=== PATIENT | female | born 1995 | race American Indian/Alaskan Native ===

== ENCOUNTER 2018-03-13 14:29 | Emergency (ER) | payer MEDICAID ==
--- NOTE | 2018-03-13 14:47 | Emergency Department Report ---
ED General Adult HPI - General Chief complaint: Upper Respiratory Infection Stated complaint: FEELING ILL FEVER AND SHORT OF BREATH Time Seen by Provider: 03/13/18 14:45 Source: patient Mode of arrival: Ambulatory Limitations: No Limitations - History of Present Illness Initial comments: This is a 22-year-old female here complaining of cold symptoms and shortness of breath for one week. She reports cough is productive and green, runny nose and congestion. She states that she has asthma but it slightly like her asthma symptoms. Patient says she just moved to [place]. She says she takes inhaler for asthma. Denies any chest pain. Denies any wheezing. She says she usually wheezes and cough with her asthma attacks. Patient says she has chills but denies any fever. Last menstrual period was 02/17/2018. Patient also requesting to have STD testing because she said she might of been exposed to STD and report vaginal discharge with negative odor. She denies any pain. She took [id number] cough and cold medication did not help. Denies any nausea or vomiting. Denies any recent weight loss. MD Complaint: cold symptoms and possible STD Onset/Timin -: week(s) Severity scale (0 -10): 0 Associated Symptoms: cough, fever/chills, shortness of breath. denies: confusion, chest pain, diaphoresis, headaches, loss of appetite, malaise, nausea /vomiting, rash, seizure, syncope, weakness Treatments Prior to Arrival: cold therapy - Related Data Previous Rx's Medication Instructions Recorded Last Taken Type Azithromycin [Zithromax Z-TIN] 250 mg PO DAILY 6 Days #1 pkg 03/13/18 Unknown Rx Cetirizine HCl [ZyrTEC] 10 mg PO QAM 14 Days #14 capsule 03/13/18 Unknown Rx Fluticasone [Flonase] 1 spray NS QDAY 14 Days #1 bottle 03/13/18 Unknown Rx metroNIDAZOLE [Flagyl] 500 mg PO Q12HR 7 Days #14 tab 03/13/18 Unknown Rx Allergies Allergy/AdvReac Type Severity Reaction Status Date / Time mushroom Allergy Rash Uncoded 03/13/18 14:38 seafood Allergy Unknown Uncoded 03/13/18 14:38 ED Review of Systems ROS: Stated complaint: FEELING ILL FEVER AND SHORT OF BREATH Other details as noted in HPI Constitutional: chills. denies: fever Eyes: denies: eye pain, eye discharge ENT: denies: ear pain, throat pain, congestion Respiratory: cough, shortness of breath, SOB with exertion. denies: SOB at rest , stridor, wheezing Cardiovascular: denies: chest pain, palpitations, edema, syncope Gastrointestinal: denies: abdominal pain, nausea, vomiting, diarrhea, hematemesis, melena, hematochezia Genitourinary: denies: urgency, dysuria, frequency, hematuria, discharge, abnormal menses, dyspareunia Musculoskeletal: denies: back pain, joint swelling, arthralgia Skin: denies: rash, lesions Neurological: denies: headache, weakness, numbness, paresthesias, confusion, abnormal gait, vertigo ED Past Medical Hx - Past Medical History Previous Medical History?: Yes Hx Asthma: Yes - Surgical History Past Surgical History?: Yes Additional Surgical History: Gaston eye surgery - Family History Family history: hypertension - Social History Smoking Status: Former Smoker Substance Use Type: Alcohol - Medications Home Medications: Home Medications Medication Instructions Recorded Confirmed Last Taken Type Azithromycin [Zithromax Z-TIN] 250 mg PO DAILY 6 Days #1 pkg 03/13/18 Unknown Rx Cetirizine HCl [ZyrTEC] 10 mg PO QAM 14 Days #14 capsule 03/13/18 Unknown Rx Fluticasone [Flonase] 1 spray NS QDAY 14 Days #1 bottle 03/13/18 Unknown Rx metroNIDAZOLE [Flagyl] 500 mg PO Q12HR 7 Days #14 tab 03/13/18 Unknown Rx ED Physical Exam - General Limitations: No Limitations General appearance: alert, in no apparent distress - Head Head exam: Present: atraumatic, normocephalic, normal inspection - Eye Eye exam: Present: normal appearance, PERRL, EOMI Pupils: Present: normal accommodation - ENT ENT exam: Present: normal exam, normal orophraynx, mucous membranes moist, normal external ear exam, other (bilateral nasal mucosa congested, erythema or drainage. Maxillary sinus tenderness to palpate). Absent: TM's normal bilaterally (bilateral TM congested without any erythema) - Neck Neck exam: Present: normal inspection, tenderness, full ROM, other (no C-spine tenderness). Absent: meningismus, lymphadenopathy - Respiratory Respiratory exam: Present: normal lung sounds bilaterally, other (dry cough). Absent: respiratory distress, wheezes, rales, rhonchi, stridor, chest wall tenderness, accessory muscle use, decreased breath sounds, prolonged expiratory - Cardiovascular Cardiovascular Exam: Present: regular rate, normal rhythm, normal heart sounds. Absent: systolic murmur, diastolic murmur - GI/Abdominal GI/Abdominal exam: Present: soft, normal bowel sounds. Absent: distended, tenderness, guarding, rebound, rigid, organomegaly, mass, bruit, pulsatile mass - External exam: Present: normal external exam Speculum exam: Present: vaginal discharge, cervical discharge. Absent: erythema , vaginal bleeding, foreign body, tissue, laceration Bi-manual exam: Present: normal bi-manual exam - Extremities Exam Extremities exam: Present: normal inspection, full ROM, normal capillary refill , other (no clubbing, cyanosis or edema. +2 pulses to all extremities and no neurovascular compromise). Absent: tenderness, pedal edema, joint swelling, calf tenderness - Back Exam Back exam: Present: normal inspection, full ROM, other (extremities without any difficulties). Absent: tenderness, CVA tenderness (R), CVA tenderness (L), muscle spasm, paraspinal tenderness, vertebral tenderness, rash noted - Neurological Exam Neurological exam: Present: alert, oriented X3, normal gait, reflexes normal. Absent: motor sensory deficit - Psychiatric Psychiatric exam: Present: normal affect, normal mood - Skin Skin exam: Present: warm, dry, intact, normal color. Absent: rash ED Course Vital Signs 03/13/18 14:38 Temperature 98.7 F Pulse Rate 99 H Respiratory 18 Rate Blood Pressure 118/89 O2 Sat by Pulse 98 Oximetry - Reevaluation(s) Reevaluation #1: 03/13/18 16:09 Patient is stable. Wet prep negative trichomoniasis, negative yeast and less than 20% to cells. Urinalysis with positive protein, trace ketone, increased specific gravity and moderate leukocyte Estrace otherwise stable. Urine culture sent. Patient abdominal and pelvic exam is normal. Awaiting chest x- ray Reevaluation #2: 03/13/18 16:58 Patient's stable. No change in status. She is able to tolerate oral liquids in the emergency room without any difficulties. ED Medical Decision Making - Lab Data Lab Results 03/13/18 Range/Units 15:24 Urine Color Prema (Yellow) Urine Turbidity Clear (Clear) Urine pH 5.0 (5.0-7.0) Ur Specific [place] 1.036 H (1.003-1.030) Urine Protein 30 mg/dl (Negative) mg/dL Urine Glucose (UA) Neg (Negative) mg/dL Urine Ketones Tr (Negative) mg/dL Urine Blood Neg (Negative) Urine Nitrite Neg (Negative) Urine Bilirubin Neg (Negative) Urine Urobilinogen 4.0 (<2.0) mg/dL Ur Leukocyte Esterase Mod (Negative) Urine WBC (Auto) 5.0 (0.0-6.0) /HPF Urine RBC (Auto) 5.0 (0.0-6.0) /HPF U Epithel Cells (Auto) 9.0 (0-13.0) /HPF Urine Mucus 2+ /HPF Urine HCG, Qual Negative (Negative) - Radiology Data Radiology results: report reviewed Chest x-ray 2 views dictated by radiologist's report reviewed by myself. Please see report below. Patient: LUX YEUNG MR#: [id number] : 1995 Acct:[id number] Age/Sex: 22 / F ADM Date: 03/13/18 Loc: ED Attending Dr: Ordering Physician: LAYNE VINES Date of Service: 03/13/18 Procedure(s): XR chest routine 2V Accession Number(s): [id number] cc: LAYNE VINES Fluoro Time In Minutes: FINAL REPORT EXAM: XR CHEST ROUTINE 2V HISTORY: cough x 1 week TECHNIQUE: Two view chest PA and lateral PRIORS: None. FINDINGS: Cardiac and mediastinal contours are unremarkable. No focal pulmonary infiltrate is identified. No pleural fluid collection seen. Pulmonary vasculature is unremarkable. IMPRESSION: Negative two-view chest Transcribed By: FLAKITO Dictated By: GENOVEVA PALACIO MD Electronically Authenticated By: GENOVEVA PALACIO MD Signed Date/Time: 03/13/181708 DD/ 08 TD/TT: 03/13/181708 - Medical Decision Making ED course: 22-year-old female here reports that she is having vaginal discharge for over a week and wants to be tested for STD and also complaining of cold symptoms to include some shortness of breath, cough, runny nose and nasal congestion. Patient's this is very taken [id number]-[id number] cold and cough without any relief. She is here to be evaluated She was examined by myself and she had urinalysis done which shows no signs of infection but she does have trace ketones, increased specific gravity, protein without any bacteria or white blood cell. She had a pelvic exam and wet prep was positive for bacterial vaginosis with less than 20% to cell, negative for yeast and Trichomonas. test is negative Gonorrhea and chlamydia test is pending. Patient found to have sinusitis, cough, vaginal discharge that is malodorous. I discussed treatment plan with patient and I discussed with her she could be empirically treated for gonorrhea and chlamydia or she can wait until the results is back to be treated. Patient wants to wait until her gonorrhea and chlamydia tests reports is resulted before she gets treatment. I discussed with her that she has some bacterial vaginosis and will be treated and I discussed chest x-ray results with her. Chest x-ray was dictated by radiologist and reviewed by myself and result is normal. Patient remained stable throughout ED course. A/P 1: Vaginal discharge in female concern for STD without diagnosis: Wet prep positive B fever less than 20% clue cells, negative yeast and negative Trichomonas. She will be treated with Flagyl and she wants to wait for gonorrhea and chlamydia tests before she gets treated, she needs to be treated. 2: Acute sinusitis-Will discharge home on Z-Tin, Flonase and Zyrtec. 3: Cough-resolve after postnasal drainage subside Patient educated on medication, treatment plan, diagnosis, safe sex and she was understanding. She understands that she is to refrain from having all call while on Flagyl and not to have any sexual activity until she has full result of her STD testing. She does have access to medical care. She does not have [employer] doctor saw her for her to Dr. Venkatesh Page who is on-call, and also to who is primary care. I'll also refer her to [facility], [employer] and primary care. This was discussed with her and she voiced understanding Patient discharged home in stable condition. Her vital signs are stable and she is afebrile. Patient is to follow-up with [employer] in primary care in 2-3 days. I discussed with her for symptoms worsen to return to the emergency room and she voiced understanding. Discharged home with prescription for Flonase, Zyrtec, Z-Tin and Flagyl. - Differential Diagnosis PNA, bronchitis, sinusitis, hCG, UTI ,URI, cough and congestion, STD Critical care attestation.: If time is entered above; I have spent that time in minutes in the direct care of this critically ill patient, excluding procedure time. ED Disposition Clinical Impression: Cough in adult patient, Bacterial vaginosis, Mild dehydration, Vaginal discharge, Concern about STD in female without diagnosis Sinusitis, acute Qualifiers: Sinusitis location: unspecified location Recurrence: not specified as recurrent Qualified Code(s): J01.90 - Acute sinusitis, unspecified Disposition: TO HOME OR SELFCARE Is pt being admited?: No Does the pt Need Aspirin: No Condition: Stable Instructions: Bacterial Vaginosis (ED), Sexually Transmitted Diseases (ED), Safe Sex (ED), Sinusitis (ED), Acute Cough (ED) Additional Instructions: Please follow up at [facility] as instructed in 7-10 days for repeat urinalysis and repeat check for bacterial vaginosis Your Gonorrhea and chlamydia tests will be back in approximately 5 days so return to medical records department to get your results. Someone will contact you if you test is positive. Take Zyrtec, Flonase for nasal congestion Take Z-Tin for sinus infection Take Flagyl for bacterial vaginosis Prescriptions: Azithromycin [Zithromax Z-TIN] 250 mg PO DAILY 6 Days #1 pkg Cetirizine HCl [ZyrTEC] 10 mg PO QAM 14 Days #14 capsule Fluticasone [Flonase] 1 spray NS QDAY 14 Days #1 bottle metroNIDAZOLE [Flagyl] 500 mg PO Q12HR 7 Days #14 tab Referrals: [facility] [Outside] - 2-3 Days GREGORIO GASPAR MD [Staff Physician] - 2-3 Days UNIQUE PAGE MD [Staff Physician] - 2-3 Days Forms: STI Treatment and Prevention, Work/School Release Form(ED)
[2018-03-13 15:59] LABS: Bilirubin,Urine NEG (Negative); Blood,Urine NEG (Negative); Color,Urine Amber (Yellow); Mucus,Urine 2+ /HPF
[2018-03-13 16:02] LABS: HCG Qualitative,Urine Negative (Negative)
--- NOTE | 2018-03-13 17:13 | XRay Report ---
FINAL REPORT EXAM: XR CHEST ROUTINE 2V HISTORY: cough x 1 week TECHNIQUE: Two view chest PA and lateral PRIORS: None. FINDINGS: Cardiac and mediastinal contours are unremarkable. No focal pulmonary infiltrate is identified. No pleural fluid collection seen. Pulmonary vasculature is unremarkable. IMPRESSION: Negative two-view chest
[2018-03-13 18:04] VITALS: BP 136/68
== END 2018-03-13 18:02 | disposition home or self-care (01) ==
LOC: ED 14:29
DX: J01.90 Acute sinusitis, unspecified (principal); E86.0 Dehydration; N76.0 Acute vaginitis; J45.909 Unspecified asthma, uncomplicated; B96.89 Other specified bacterial agents as the cause of diseases classified elsewhere; Z87.891 Personal history of nicotine dependence; Z91.013 Allergy to seafood; Z91.018 Allergy to other foods
CPT/HCPCS: 71046; 81001; 81025; 87086; 87210; 87591